=== PATIENT | male | born 1955 | race Caucasian/White ===

== ENCOUNTER 2017-08-10 18:24 | Emergency (ER) | payer MEDICARE, OTHER ==
[~2017-08-10] VITALS: Ht 170.2 cm; Wt 72.6 kg
[~2017-08-10 18:24] MED LIST: ALBIPROI INH; ALBU3IS INH; ALBU90I INH; AMOX500 PO; ATOR10 PO; AZIT250 PO; BACL10 PO; BACL20 PO; CEPH500 PO; CLIN150; CLIN300 PO; CLOP75; CLOP75 PO; CODGUAEL PO; CYCL10 PO; DEXGUASY PO; DIAZ5 PO; DIPASPER; GABA300 PO; HYDACE10B PO; HYDACE5 PO; HYDCHL25 PO; HYDGUAL120 PO; LEVFLO500 PO; LORA1; METH5 PO; METO50 PO; OXYACE5T PO; OXYC10TA19 PO; OXYC15ER PO; PRED20 PO; PROACE100 PO; RANI150; RANI150 PO; RXCEPH500 PO; RXHYDMOR2 PO; RXOXYACE PO; RXPROACE PO; RXSULTRIDS PO; SILSUL1TC TOP; SULTRIDS PO; ZOLP10 PO
[2017-08-10 20:27] LABS: BASOPHILS ABSOLUTE AUTO 0.09 K/mm3 (0.00-0.23); BASOPHILS PERCENT AUTO 1 % (0-2); EOSINOPHILS ABSOLUTE AUTO 0.29 K/mm3 (0.00-0.68); EOSINOPHILS PERCENT AUTO 3 % (0-6); Hemoglobin 12.4 g/dL (13.5-17.5); IMMATURE GRAN ABSOLUTE AUTO 0.03 K/mm3 (0.00-0.10); IMMATURE GRAN PERCENT AUTO 0 % (0-1); LYMPHOCYTES ABSOLUTE AUTO 2.78 K/mm3 (0.84-5.20); LYMPHOCYTES PERCENT AUTO 31 % (21-46); MONOCYTES ABSOLUTE AUTO 0.61 K/mm3 (0.16-1.47); MONOCYTES PERCENT AUTO 7 % (4-13); Mean Corpuscular HGB 28.5 pg (26.0-34.0); Mean Corpuscular HGB Conc 31.8 g/dL (31.5-36.5); Mean Corpuscular Volume 90 fL (80-100); Mean Platelet Volume 9.1 fL (9.1-12.4); NEUTROPHILS ABSOLUTE AUTO 5.11 K/mm3 (1.96-9.15); NEUTROPHILS PERCENT AUTO 57 % (41-73); Platelet Count 264 K/mm3 (150-400); RDW Coefficient Variation 14.3 % (11.7-14.2); Red Blood Cell Count 4.35 M/mm3 (4.30-5.90); White Blood Cell Count 8.91 K/mm3 (4.00-11.30)
[2017-08-10 20:46] LABS: Alanine Aminotransfer (ALT/SGP 18 U/L (12-78); Albumin, Blood 3.5 g/dL (3.4-5.0); Albumin/Globulin Ratio 0.9 (0.8-1.8); Alk Phos 163 U/L (50-136); Anion Gap 7 mmol/L (6-16); Aspartate Aminotrans (AST/SGOT 16 U/L (12-37); Bilirubin, Total 0.1 mg/dL (0.1-1.0); Blood Urea Nitrogen 9 mg/dL (8-24); CO2, Blood 26 mmol/L (21-32); Calcium, Blood 8.7 mg/dL (8.5-10.1); Chloride, Blood 107 mmol/L (98-108); Globulin, Blood 3.8 g/dL (2.2-4.0); Glomerular Filtration Rate >60 (60-); Glucose, Blood 102 mg/dL (70-99); Potassium, Blood 4.4 mmol/L (3.5-5.5); Sodium, Blood 140 mmol/L (136-145); Total Protein, Blood 7.3 g/dL (6.4-8.2)
== END 2017-08-10 21:45 | disposition home or self-care (01) ==
LOC: ER 18:24
PROVIDERS: Emergency Medicine
DX: R20.2 Paresthesia of skin (principal); R00.8 Other abnormalities of heart beat; I10 Essential (primary) hypertension; F17.200 Nicotine dependence, unspecified, uncomplicated; J44.9 Chronic obstructive pulmonary disease, unspecified; Z86.73 Personal history of transient ischemic attack (TIA), and cerebral infarction without residual deficits; Z88.5 Allergy status to narcotic agent; Z88.8 Allergy status to other drugs, medicaments and biological substances; Z79.899 Other long term (current) drug therapy
CPT/HCPCS: 36415; 70450; 80053; 85025; 93005; 93010; 99284

== ENCOUNTER 2017-08-26 15:53 | Emergency (ER) | payer MEDICARE, OTHER ==
[~2017-08-26] VITALS: Ht 167.6 cm; Wt 72.6 kg
[2017-08-26 16:30] LABS: BASOPHILS ABSOLUTE AUTO 0.03 K/mm3 (0.00-0.23); BASOPHILS PERCENT AUTO 1 % (0-2); EOSINOPHILS ABSOLUTE AUTO 0.02 K/mm3 (0.00-0.68); EOSINOPHILS PERCENT AUTO 0 % (0-6); Hematocrit 32.3 % (37.0-53.0); Hemoglobin 10.5 g/dL (13.5-17.5); IMMATURE GRAN ABSOLUTE AUTO 0.02 K/mm3 (0.00-0.10); IMMATURE GRAN PERCENT AUTO 0 % (0-1); LYMPHOCYTES ABSOLUTE AUTO 1.36 K/mm3 (0.84-5.20); LYMPHOCYTES PERCENT AUTO 23 % (21-46); MONOCYTES PERCENT AUTO 10 % (4-13); Mean Corpuscular HGB 29.1 pg (26.0-34.0); Mean Corpuscular HGB Conc 32.5 g/dL (31.5-36.5); Mean Corpuscular Volume 90 fL (80-100); Mean Platelet Volume 9.2 fL (9.1-12.4); NEUTROPHILS ABSOLUTE AUTO 3.99 K/mm3 (1.96-9.15); NEUTROPHILS PERCENT AUTO 66 % (41-73); Platelet Count 178 K/mm3 (150-400); RDW Coefficient Variation 14.3 % (11.7-14.2); Red Blood Cell Count 3.61 M/mm3 (4.30-5.90); White Blood Cell Count 6.02 K/mm3 (4.00-11.30)
[2017-08-26 16:50] LABS: PCO2 Arterial 35.7 mmHg (35-45); PO2 Arterial 58.5 mmHg (80-100); pH Blood Arterial 7.42 (7.35-7.45)
[2017-08-26 16:51] LABS: Troponin I <0.015 ng/mL (0.000-0.040)
[2017-08-26 17:05] LABS: Alanine Aminotransfer (ALT/SGP 16 U/L (12-78); Albumin, Blood 3.1 g/dL (3.4-5.0); Albumin/Globulin Ratio 0.9 (0.8-1.8); Alk Phos 125 U/L (50-136); Anion Gap 11 mmol/L (6-16); Aspartate Aminotrans (AST/SGOT 23 U/L (12-37); Bilirubin, Total <0.1 mg/dL (0.1-1.0); Blood Urea Nitrogen 13 mg/dL (8-24); CO2, Blood 19 mmol/L (21-32); Calcium, Blood 7.8 mg/dL (8.5-10.1); Chloride, Blood 106 mmol/L (98-108); Creatinine, Blood 0.93 mg/dL (0.60-1.20); Globulin, Blood 3.5 g/dL (2.2-4.0); Glomerular Filtration Rate >60 (60-); Glucose, Blood 95 mg/dL (70-99); Potassium, Blood 3.7 mmol/L (3.5-5.5); Sodium, Blood 136 mmol/L (136-145); Total Protein, Blood 6.6 g/dL (6.4-8.2)
[2017-08-26] MEDS ORDERED: ZOLP10 PO (17:24)
[2017-08-26] MEDS ORDERED: TRAM50 (17:24)
[2017-08-26] MEDS ORDERED: Advair Hfa 230-12 GM (17:24)
[2017-08-26] MEDS ORDERED: BACL10 (17:24)
[2017-08-26] MEDS ORDERED: ALBU90OI6 (17:25)
[2017-08-26] MEDS ORDERED: PRED10 PO (17:59)
== END 2017-08-26 18:10 | disposition home or self-care (01) ==
LOC: ER 15:53
PROVIDERS: Emergency Medicine
DX: J44.1 Chronic obstructive pulmonary disease with (acute) exacerbation (principal); I25.10 Atherosclerotic heart disease of native coronary artery without angina pectoris; I10 Essential (primary) hypertension; F17.210 Nicotine dependence, cigarettes, uncomplicated; Z86.73 Personal history of transient ischemic attack (TIA), and cerebral infarction without residual deficits; Z79.899 Other long term (current) drug therapy
CPT/HCPCS: 36415; 36600; 71046; 80053; 82803; 84484; 85025; 93005; 93010; 94644; 96374; 99283; J2930

== ENCOUNTER 2021-02-26 16:33 | Emergency (ER) | payer MEDICARE, OTHER ==
[~2021-02-26] VITALS: Ht 170.2 cm; Wt 77.1 kg
[~2021-02-26 16:33] MED LIST changes: +ALBU90OI6; +Advair Hfa 230-12 GM; +BACL10; +PRED10 PO; +TRAM50
[2021-02-26] MEDS ORDERED: DOXY100 PO (17:49)
== END 2021-02-26 18:03 | disposition home or self-care (01) ==
LOC: ER 16:33
DX: L03.114 Cellulitis of left upper limb (principal); I10 Essential (primary) hypertension; J44.9 Chronic obstructive pulmonary disease, unspecified; I25.10 Atherosclerotic heart disease of native coronary artery without angina pectoris; F17.210 Nicotine dependence, cigarettes, uncomplicated; Z88.5 Allergy status to narcotic agent; Z88.8 Allergy status to other drugs, medicaments and biological substances; Z79.899 Other long term (current) drug therapy; Z79.02 Long term (current) use of antithrombotics/antiplatelets
CPT/HCPCS: 73110; A9270

== ENCOUNTER 2023-07-03 12:01 | Inpatient (IN) | payer OTHER ==
[~2023-07-03] VITALS: Ht 170.2 cm; Wt 81.7 kg
[~2023-07-03 12:01] MED LIST changes: +DOXY100 PO
[2023-07-03 13:05] LABS: MONOCYTES PERCENT AUTO 7 % (4-13); RDW Coefficient Variation 13.8 % (11.7-14.2)
[2023-07-03 13:17] LABS: BASOPHILS ABSOLUTE AUTO 0.04 K/mm3 (0.00-0.23); BASOPHILS PERCENT AUTO 0 % (0-2); EOSINOPHILS ABSOLUTE AUTO 0.05 K/mm3 (0.00-0.68); EOSINOPHILS PERCENT AUTO 1 % (0-6); Hematocrit 39.3 % (37.0-53.0); Hemoglobin 12.7 g/dL (13.5-17.5); IMMATURE GRAN ABSOLUTE AUTO 0.04 K/mm3 (0.00-0.10); IMMATURE GRAN PERCENT AUTO 0 % (0-1); LYMPHOCYTES ABSOLUTE AUTO 1.11 K/mm3 (0.84-5.20); LYMPHOCYTES PERCENT AUTO 11 % (21-46); MONOCYTES ABSOLUTE AUTO 0.66 K/mm3 (0.16-1.47); Mean Corpuscular HGB 27.5 pg (26.0-34.0); Mean Corpuscular HGB Conc 32.3 g/dL (31.5-36.5); Mean Corpuscular Volume 85 fL (80-100); NEUTROPHILS ABSOLUTE AUTO 8.25 K/mm3 (1.96-9.15); NEUTROPHILS PERCENT AUTO 81 % (41-73); Red Blood Cell Count 4.61 M/mm3 (4.30-5.90); White Blood Cell Count 10.15 K/mm3 (4.00-11.30)
[2023-07-03 13:37] LABS: Albumin, Blood 2.9 g/dL (3.4-5.0); Albumin/Globulin Ratio 0.8 (0.8-1.8); Bilirubin, Total 1.7 mg/dL (0.1-1.0); Bun/Creatinine Ratio 18.5 (12.0-20.0); Calcium, Blood 8.4 mg/dL (8.5-10.1); Creatinine, Blood 0.92 mg/dL (0.60-1.20); Globulin, Blood 3.8 g/dL (2.2-4.0); Potassium, Blood 5.9 mmol/L (3.5-5.5); Total Protein, Blood 6.7 g/dL (6.4-8.2)
--- NOTE | 2023-07-03 18:26 | NUR ---
"Spiritual Care | Family/Staff support Pt. was coding, and staff were doing compressions. This manager security and safety attempted to call the next of kin, and ultimately got in contact with Pts. sister Elba. When Elba arrived this manager security and safety brought Elba to the Consult room where Dr. Keller met with her. Afterward I brought Elba to the Pts. room. Elba confirmed the Pts. status change to DNR. Prayed with Elba at the Pts. bedside. Elba verbalized gratitude for the spiritual care visit."
[2023-07-03 19:05] VITALS: BP 101/49
[2023-07-03 19:15] VITALS: BP 87/50
--- NOTE | 2023-07-03 20:14 | NUR ---
PATIENT TO ICU 14 FROM ER AT 1905, PATIENT INTUBATED ON VENT WITH FENTANYL DRIP, MOVING UPPER EXTREMITIES, NO PUPOSEFUL MOVEMENT. HR 80s-90s, ARRYHTHMIAS SEE RHYTHM STRIPS IN CHART. AMIO DRIP INFUSING UPON ARRIVAL. BP WITH MAP OF 62, LEVOPHED INFUSING AT 15 MCG/MIN, TITRATED UP TO 18 MCG/MIN. FORD IN PLACE. 1918 PATIENT WENT INTO VTACH TO PEA, SEE RHYTHM STRIPS IN CHART. TIME OF 1921 DECLARED WITH MATI SPEARS RN. SISTER AND FAMILY TO BEDSIDE SHORTLY AFTER. FAMILY TOOK ALL BELONGING HOME WITH THEM.
== END 2023-07-03 19:22 | DRG 291 ==
LOC: ER 12:01 → ICUE 16:00
PROVIDERS: Emergency Medicine; ADMIT Internal Medicine
PROC: 3E033XZ Introduction of Vasopressor into Peripheral Vein, Percutaneous Approach (ICD-10-PCS; principal; 2023-07-03)
PROC: 5A2204Z Restoration of Cardiac Rhythm, Single (ICD-10-PCS; principal; 2023-07-03)
PROC: 5A1935Z Respiratory Ventilation, Less than 24 Consecutive Hours (ICD-10-PCS; principal; 2023-07-03)
PROC: 0BH17EZ Insertion of Endotracheal Airway into Trachea, Via Natural or Artificial Opening (ICD-10-PCS; principal; 2023-07-03)
PROC: 05HM33Z Insertion of Infusion Device into Right Internal Jugular Vein, Percutaneous Approach (ICD-10-PCS; principal; 2023-07-03)
DX: I11.0 Hypertensive heart disease with heart failure (principal); J96.01 Acute respiratory failure with hypoxia; J44.1 Chronic obstructive pulmonary disease with (acute) exacerbation; I49.01 Ventricular fibrillation; I50.9 Heart failure, unspecified; I46.8 Cardiac arrest due to other underlying condition; Z66 Do not resuscitate; I42.9 Cardiomyopathy, unspecified; I25.10 Atherosclerotic heart disease of native coronary artery without angina pectoris; G89.29 Other chronic pain; M54.9 Dorsalgia, unspecified; G62.9 Polyneuropathy, unspecified; Z85.46 Personal history of malignant neoplasm of prostate; Z86.73 Personal history of transient ischemic attack (TIA), and cerebral infarction without residual deficits; Z95.1 Presence of aortocoronary bypass graft; Z87.891 Personal history of nicotine dependence; Z79.02 Long term (current) use of antithrombotics/antiplatelets
CPT/HCPCS: 31500; 36556; 51702; 71045; 80053; 83880; 84484; 85025; 92950; 92960; 93005; 93010; 94002; 94640; 94664; 96374-59; 96375-59; 99291-25; A9270; C1751; J0282; J1120; J1940; J2371; J2930; J3010; J3475; J7030; J7050; J7060